=== PATIENT | male | born 1995 | race Caucasian/White ===

== ENCOUNTER 2016-08-18 02:15 | Emergency (ER) | payer OTHER ==
[~2016-08-18] VITALS: Ht 177.8 cm; Wt 77.1 kg
--- NOTE | 2016-08-18 02:15 | NUR ---
Patient was BIB [facility] at this time and taken to overflow.
[2016-08-18 02:21] VITALS: BP 122/76
--- NOTE | 2016-08-18 02:25 | NUR ---
Dr. Chan evaluating patient.
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
[2016-08-18 02:39] VITALS: BP 122/76
--- NOTE | 2016-08-18 02:47 | NUR ---
Patient discharged with v/s stable. Written and verbal after care instructions given and explained. Patient verbalized understanding. Ambulatory with steady gait. All questions addressed prior to discharge. Advised to follow up with PMD.
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
== END 2016-08-18 02:47 ==
LOC: MED 02:15
DX: Z02.89 Encounter for other administrative examinations (principal); F10.129 Alcohol abuse with intoxication, unspecified; F17.200 Nicotine dependence, unspecified, uncomplicated; V43.52XA Car driver injured in collision with other type car in traffic accident, initial encounter; Y93.89 Activity, other specified; Y92.89 Other specified places as the place of occurrence of the external cause; Y99.8 Other external cause status; Y90.9 Presence of alcohol in blood, level not specified